=== PATIENT | female | born 1990 | race Caucasian/White ===

== ENCOUNTER → 2021-02-20 | Outpatient (CLI) | payer OTHER ==
--- NOTE | 2021-02-20 14:47 | KCIC ---
Examination: MRI of the right hip without contrast HISTORY: Chronic right hip pain COMPARISON: None TECHNIQUE: Multiplanar, multisequence MR imaging of the right hip was performed contrast FINDINGS: The attachment of the hamstring tendon to the ischial tuberosity, attachment of the gluteal tendons t o the greater trochanter, attachment of the iliopsoas tendon to the lesser trochanter and the attachm ent of the rectus femoris tendon to the anterior inferior iliac spine grossly appears intact.The righ t femur length the acetabulum. The visualized labrum grossly appears unremarkable.There is no acute f racture or dislocation identified. There is a 1.5 cm bony projection extending from the cortex of the lesser trochanter on the right could be a sessile exostosis. IMPRESSION: 1. There is a 1.5 cm bony projection extending from the cortex of the lesser trochanter on the right could be a small sessile exostosis. Electronically signed by: Arturo Villegas MD (02/20/2021 2:45 PM) [id number]
== END ==
LOC: KCIC MRI 12:29
PROVIDERS: ATTEND Family Medicine
DX: M25.551 Pain in right hip (principal); Z87.312 Personal history of (healed) stress fracture
CPT/HCPCS: 73721

== ENCOUNTER → 2021-03-20 | Outpatient (CLI) | payer OTHER ==
--- NOTE | 2021-03-20 16:27 | RAD ---
EXAM: Lumbar spine MRI without contrast. HISTORY: Lumbar pain. Radiculopathy. TECHNIQUE: Multiplanar, multisequence magnetic resonance imaging of the lumbar spine was performed wi thout contrast. COMPARISON: None. FINDINGS: There is no listhesis. The vertebral bodies are normal in height. There is no suspicious os seous lesion. There is no acute or subacute fracture. The conus terminates at L1-L2. There are small incidental simple cyst within the inferior right kidney. Follow-up is not routinely performed for sim ple cysts. There is no lumbar disc protrusion or significant lumbar foraminal or central canal stenos is. IMPRESSION: No acute finding or significant lumbar foraminal or central canal stenosis. Electronically signed by: Elisha Shah MD (03/20/2021 4:25 PM) [id number]
--- NOTE | 2021-03-20 16:49 | RAD ---
EXAMINATION: MRI SI JOINTS WITHOUT IV CONTRAST CLINICAL HISTORY: Bilateral sacroiliitis. Low back and right hip pain with radiculopathy. TECHNIQUE: Multiplanar multisequential images obtained through the bilateral sacroiliac joints withou t intravenous contrast. COMPARISON: MRI L-spine same day, MRI right hip 02/20/2021, CT pelvis 02/06/2021 FINDINGS: Sacroiliac joints within normal limits. No marginal erosions, subchondral edema or sclerosis, or anky losis. No evidence of acute fracture or suspicious marrow replacing process. Visualized muscles withi n normal limits. IMPRESSION: Unremarkable sacroiliac joints. No evidence of sacroiliitis. Electronically signed by: Efraín Osorio DO (03/20/2021 4:47 PM) [id number]
== END ==
LOC: MRI 12:30
PROVIDERS: ATTEND Physician Assistant
DX: M54.16 Radiculopathy, lumbar region (principal); M46.1 Sacroiliitis, not elsewhere classified; N28.1 Cyst of kidney, acquired; M79.10 Myalgia, unspecified site
CPT/HCPCS: 72148; 72195

== ENCOUNTER → 2021-07-20 | Outpatient (CLI) | payer OTHER ==
[~2021-07-20] MED LIST: GADOTERATE 5 MMOL/10ML VIAL. INT ART ONE; IOHEXOL 300 MG/ML 50 ML VIAL. INT ART ONE; LIDOCAINE 1% Multi-Dose 20 ML VIAL. ID ONE
--- NOTE | 2021-07-20 15:41 | KCIC ---
EXAM: Left shoulder joint injection WITH Fluoroscopic guidance DATE: 07/20/2021 12:54 PM CLINICAL HISTORY: Reason: LEFT SHOULDER PAIN / Spl. Instructions: FT 0:08, IMG 2, 5ML LIDOCAINE, 5ML OMNI 300, 10ML SALINE, 0.1ML CLARICAN / History: COMPARISON: None pertinent TECHNIQUE: The patient was informed of the indications and alternatives for this procedure as well as risks and benefits. No immediate contraindication identified. The patient provided informed, written consent. Laterality was confirmed by the entire team following a time out. Following initial Left shoulder joint localization, a suitable area was sterilely prepped and draped. Local anesthesia was administered with 1% xylocaine. With intermittent fluoroscopic observation, a 2 2-gauge spinal needle was advanced into the Left shoulder joint sheath/capsule with confirmation of i ntra-synovial position with infusion of less than 1 cc iodinated contrast. Subsequent infusion 12 mL solution containing 10 cc saline, 5 cc lidocaine 1%, 5 cc Isovue and 0.1 cc gadolinium. Hemostasis wi th local pressure. Local clinical exam negative for immediate complication. Patient informed re local potential signs or symptoms that may indicate need to return to ER/Ordering physician for further evaluation. Patient informed re precautionary measures after intra-synovial in jection of anesthetic. Patient expressed understanding. Performing Physicians: Dr. Sri Goff Blood Loss: 0 cc Total Fluoroscopy time: 8 seconds 2 images saved IMPRESSION: Successful intra-synovial injection Left shoulder joint per clinical request. Electronically signed by: Bryon Goff MD (07/20/2021 3:39 PM) [id number] CUST[employer] FIELD 1
--- NOTE | 2021-07-21 08:20 | KCIC ---
EXAM: MRI arthrogram left shoulder DATE: 07/20/2021 1:50 PM COMPARISON: None INDICATION: LEFT SHOULDER PAIN-Left shoulder pain, chronic. TECHNIQUE: Multiplanar, multisequence MRI arthrogram of the left shoulder was performed IV administra tion of intra-articular gadolinium contrast. FINDINGS: Iatrogenic distention of the left glenohumeral joint with gadolinium contrast. Trace subacromial-subd eltoid bursal edema without gadolinium characteristics. Mild lateral downsloping of the distal acromi on. Mild AC joint degenerative change. Type I acromion. Rotator cuff muscle signal and bulk is normal without fatty atrophy. No discrete rotator cuff tear is identified. The long head biceps tendon is intact, normal in signal. Contrast is seen extending into the biceps tendon anchor from the 12:00 position to the 10:00 positio n. Prominent appearance of the glenohumeral ligament at the anterior-inferior glenoid attachment, int act. No acute fracture or osteonecrosis. Articular cartilage is grossly preserved. IMPRESSION: 1. SLAP tear extending from the 12:00 position to the 10:00 position. 2. No rotator cuff tear. 3. Trace subacromial-subdeltoid bursal edema without gadolinium characteristics, possibly physiologi c or bursitis. Electronically signed by: Bryon Goff MD (07/21/2021 8:17 AM) [id number]
== END | disposition home or self-care (01) ==
LOC: KCIC 12:48
PROVIDERS: ATTEND Physician Assistant
DX: M25.512 Pain in left shoulder (principal); S43.432A Superior glenoid labrum lesion of left shoulder, initial encounter; Z91.013 Allergy to seafood; Z88.8 Allergy status to other drugs, medicaments and biological substances; X58.XXXA Exposure to other specified factors, initial encounter; Y93.89 Activity, other specified; Y92.89 Other specified places as the place of occurrence of the external cause; Y99.8 Other external cause status
CPT/HCPCS: 23350; 73222; 77002; A9575; J3490; Q9967